=== PATIENT | female | born 1985 | race Caucasian/White ===

== ENCOUNTER 2019-01-22 14:37 | Inpatient (IN) ==
[2019-01-22] MEDS ORDERED: Sod Chloride 0.9% Inj 1,000 ML IV.CONT SCH (18:51)
[2019-01-22] MEDS ORDERED: Morphine Inj 4 MG/ML Vial IV.PUSH PRN (19:42)
[2019-01-22] MEDS ORDERED: Morphine Sulfate Inj 2 MG/ML Vial IV.PUSH PRN (19:43)
--- NOTE | 2019-01-22 23:34 | P.HPIM ---
History of Present Illness Primary Care Physician: UNKNOWN Ms. Sheets is a pleasant 33-year-old female who presented to the emergency room in [place] on 01/22/2019 complaining of abdominal pain. Her examination findings were concerning for acute cholecystitis and she was transferred to [facility] for further evaluation under the hospitalist service. The patient is seen in her hospital room with her mother at her bedside. She appears uncomfortable. She reports severe sharp right upper quadrant pain that is worse after eating and lasts about 40 minutes. She reports symptoms started about 2 months ago but she attributed it to the stress of trying to get her picky 4-year-old to eat his food. She had some nausea associated with it. Yesterday, her symptoms became more severe and accompanied by nausea and vomiting with last episode occurring in the [place] ER. Nausea and vomiting were relieved with IV Zofran. Pain is relieved with IV Dilaudid. She has had fairly constant right upper quadrant abdominal pain since Friday when she started to experience a cough that was dry and nonproductive with 100.5 fever. She reports minimal food intake in the past 24 hours. Inpatient Certification Inpatient Certification: I certify that the inpatient services were ordered in accordance with Medicare regulations governing the order. This includes certification that hospital inpatient services are reasonable and necessary and in the case of services not specified as inpatient-only under 42 CFR 419.22(n), that they are appropriately provided as inpatient services in accordance to with the 2-midnight benchmark under 43 CFR 412.3(e) Estimated Total Length of Stay (Days): 2 Plans for Post Hospital Care: Home Review of Systems Review of Systems: all other systems reviewed are negative [facility] Medical History Medical History Uterine fibroid (Acute) Surgical History Surgical History History of tonsillectomy and adenoidectomy (Acute) Social History Social History Substance History: No History of Abuse Second Hand Smoke Exposure: No Smoking Status: Never smoker How Often Do You Have a Drink Containing Alcohol: Monthly or less Medications and Allergies Allergies Allergy/AdvReac Type Severity Reaction Status Date / Time morphine Allergy Severe breathing Verified 01/23/19 04:35 difficulty oxycodone Allergy Severe difficulty Verified 01/23/19 04:34 breathing Home Medications Medication Instructions Recorded Confirmed Type No Known Home Medications 01/22/19 01/22/19 History Active Medications: Active Medications Sodium Chloride (Ns Inj) 1,000 mls @ 100 mls/hr IV.CONT .Q10H [facility] Morphine Sulfate (Morphine Inj) 4 mg IV.PUSH Q3H PRN PRN Reason: Pain > 6 Morphine Sulfate (Morphine Inj) 2 mg IV.PUSH Q3H PRN PRN Reason: pain 3-6 Ondansetron HCl (Zofran Inj) 4 mg IV.PUSH Q8H PRN PRN Reason: NAUSEA Last Admin: 01/22/19 23:14 Dose: 4 mg Sodium Chloride (Ns Flush) 2 ml IV.FLUSH BID [facility] Sodium Chloride (Ns Flush) 2 ml IV.FLUSH PRN PRN PRN Reason: FLUSH AFTER USING IV ACCESS Physical Exam Narrative: GENERAL: This is a thin female patient, who appears uncomfortable. SKIN: No rashes, ecchymoses or lesions. Cool and dry. HEAD: Atraumatic. Normocephalic. EYES: No scleral icterus. No injection or drainage. ENT: Nose without bleeding, purulent drainage. NECK: Trachea midline. No JVD. CARDIOVASCULAR: Regular rate and rhythm without murmurs, gallops, or rubs. RESPIRATORY: Clear to auscultation. Breath sounds equal bilaterally. No wheezes , rales, or rhonchi. GASTROINTESTINAL: Normally active bowel sounds, abdomen is soft and nondistended. Right upper quadrant and epigastric pain noted with light palpation. MUSCULOSKELETAL: Extremities without clubbing, cyanosis, or edema. No calf tenderness. NEUROLOGICAL: Awake and alert. Motor and sensory grossly within normal limits. Normal speech. . Results Labs CBC & Chem 7: 01/23/19 05:53 01/23/19 05:53 Caprini VTE Risk Assessment Caprini VTE Risk Assessment: No/Low Risk (score <= 1) Caprini Risk Assessment Model: Point Value = 1 Point Value = 2 Point Value = 3 Point Value = 5 Age 41-60 Minor surgery BMI > 25 kg/m2 Swollen legs Varicose veins or History of unexplained or recurrent spontaneous Oral contraceptives or hormone replacement Sepsis (< 1 month) Serious lung disease, including pneumonia (< 1 month) Abnormal pulmonary function Acute myocardial infarction Congestive heart failure (< 1 month) History of inflammatory bowel disease Medical patient at bed rest Age 61-74 Arthroscopic surgery Major open surgery (> 45 min) Laparoscopic surgery (> 45 min) Malignancy Confined to bed (> 72 hours) Immobilizing plaster cast Central venous access Age >= 75 History of VTE Family history of VTE Factor V Leiden Prothrombin [id number] Lupus anticoagulant Anticardiolipin antibodies Elevated serum homocysteine Heparin-induced thrombocytopenia Other congenital or acquired thrombophilia Stroke (< 1 month) Elective arthroplasty Hip, pelvis, or leg fracture Acute spinal cord injury (< 1 month) Prophylaxis Regimen: Total Risk Factor Score Risk Level Prophylaxis Regimen 0-1 Low Early ambulation 2 Moderate Order ONE of the following: *Sequential Compression Device (SCD) *Heparin 5000 units SQ BID 3-4 Higher Order ONE of the following medications: *Heparin 5000 units SQ TID *Enoxaparin/Lovenox 40 mg SQ daily (WT < 150 kg, CrCl > 30 mL/min) *Enoxaparin/Lovenox 30 mg SQ daily (WT < 150 kg, CrCl > 10-29 mL/min) *Enoxaparin/Lovenox 30 mg SQ BID (WT < 150 kg, CrCl > 30 mL/min) AND/OR *Sequential Compression Device (SCD) 5 or more Highest Order ONE of the following medications: *Heparin 5000 units SQ TID (Preferred with Epidurals) *Enoxaparin/Lovenox 40 mg SQ daily (WT < 150 kg, CrCl > 30 mL/min) *Enoxaparin/Lovenox 30 mg SQ daily (WT < 150 kg, CrCl > 10-29 mL/min) *Enoxaparin/Lovenox 30 mg SQ BID (WT < 150 kg, CrCl > 30 mL/min) AND *Sequential Compression Device (SCD) Assessment and Plan Plan Ms. Sheets is a pleasant 33-year-old female who presented to the emergency room in [place] on 01/22/2019 complaining of abdominal pain. Her examination findings were concerning for acute cholecystitis and she was transferred to [facility] for further evaluation under the hospitalist service. Right upper quadrant abdominal pain with concern for cholecystitis -WBC normal at 5.8, normal liver function tests and electrolytes; patient afebrile -Gallbladder ultrasound- sonographically normal although positive sonographic Candelaria's sign was elicited -NPO -HIDA scan in a.m. - if positive, consult to general surgery -Repeat labs in a.m. -Monitor for fever -IVF hydration with D51/2 NS at 84 cc/hr -Antiemetic: IV Zofran PRN -Analgesia: IV Dilaudid PRN - patient allergic to morphine and oxycodone Nonproductive cough Epigastric pain with palpation -Chest x-ray negative -Possible GERD?/PUD -Protonix 40 mg IV every 24 hours -Continue to monitor -Consider consult to gastroenterology if symptoms persist or don't improve Nephrocalcinosis -UA with blood; nephrocalcinosis suggested on gallbladder ultrasound due to echogenic medullary pyramids along with nonobstructing right renal calculus suspected -Abdomen/pelvis CT without contrast showed multiple nonobstructing stones in both kidneys with fluffy calcifications involving the calyces and possibility of medullary nephrocalcinosis -Consider nephrology consult to evaluate for underlying cause Uterine fibroids -f/u with outpatient [employer]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 presented with abdominal pain and nausea. HIDA with cholecystitis. on exam; abdomen is tender RUQ. keep NPO and consult general surgery. will also consult nephrology for nephrocalcinosis.
[2019-01-23] MEDS ORDERED: HYDROmorphone PF Inj 0.5 MG/0.5 ML Syringe IV.PUSH PRN (00:16)
[2019-01-23] MEDS: HYDROmorphone PF Inj 2 MG/ML Vial IV.PUSH PRN ×4 (00:47→19:08)
[2019-01-23] MEDS ORDERED: SODIUM CHLOR 0.9% IV.SIG ONE (01:48)
[2019-01-23] MEDS ORDERED: SINCALIDE IV.SIG ONE (01:48)
[2019-01-23] MEDS: Dextrose 5%/NaCl 0.45% Inj 1,000 ML IV.CONT SCH ×2 (02:29→14:50)
[2019-01-23] MEDS: Sodium Chloride 0.9% 2 ML Flush BID IV.FLUSH SCH ×3 (02:30→20:26)
[2019-01-23] MEDS: Pantoprazole Inj 40 MG Vial IV.PUSH SCH (02:30)
[2019-01-23 07:07] LABS: Baso % (Auto) 0.8 % (0.0-2.0); Eos % (Auto) 0.1 % (0.0-4.0); Hematocrit 37.4 % (35.0-46.0); Hemoglobin 12.7 gm/dL (11.6-15.3); Lymph # (Auto) 0.6 th/mm3 (1.0-4.8); Lymph % (Auto) 14.4 % (9.0-44.0); Mean Corpuscular HGB Conc 33.9 % (32.0-36.0); Mean Corpuscular Hemoglobin 28.9 pg (27.0-34.0); Mean Corpuscular Volume 85.2 fL (80.0-100.0); Mean Platelet Volume 11.4 fL (7.0-11.0); Mono # (Auto) 0.4 th/mm3 (0.0-0.9); Mono % (Auto) 8.7 % (0.0-8.0); Neut # (Auto) 3.2 th/mm3 (1.8-7.7); Platelet Count 142 th/mm3 (150-450); Red Blood Count 4.39 mil/mm3 (4.00-5.30); Red Cell Distribution Width 13.5 % (11.6-17.2); White Blood Count 4.2 th/mm3 (4.0-11.0)
[2019-01-23 07:32] LABS: Albumin 3.3 g/dL (3.4-5.0); Anion Gap 7 meq/L (5-15); Aspartate Aminotransferase 13 U/L (15-37); Blood Urea Nitrogen 9 mg/dL (7-18); Calcium 8.4 mg/dL (8.5-10.1); Carbon Dioxide 26.1 meq/L (21.0-32.0); Chloride 108 meq/L (98-107); Glomerular Filtration Rate Greater Than 89 mL/min (>89); Glucose,Random 99 mg/dL (74-106); Potassium 3.6 meq/L (3.5-5.1); Sodium 141 meq/L (136-145)
[2019-01-23 07:33] LABS: Alanine Aminotransferase 22 U/L (10-53)
[2019-01-23 07:36] LABS: Alkaline Phosphatase 66 U/L (45-117); Total Protein 6.9 g/dL (6.4-8.2)
--- NOTE | 2019-01-23 10:23 | NM ---
EXAM DATE: 01/23/2019 10:14 AM EST AGE/SEX: 33 years / Female INDICATIONS: Abdominal pain with nausea and vomiting. CLINICAL DATA: This is the patient's initial encounter. Patient reports that signs and symptoms have been present for 2 days and indicates a pain score of 7/10. MEDICAL/SURGICAL HISTORY: None. Tonsillectomy. COMPARISON: No prior exams available for comparison. DOSE: 4.1 mCi Tc-99m mebrofenin i.v. Medication: 0.9 mcg Cholecystokinin IV Identical symptomatic response Cholecystokinin was administered by slow infusion over 8 minutes beginning at 60 minutes. TECHNIQUE: Following the intravenous administration of radiotracer, dynamic sequential images were pe rformed with continuous acquisition. Time-activity curves were generated. FINDINGS: There is prompt extraction of radiotracer activity seen in the common duct and small bowel in 15 sudheer ja. There is nonvisualization the gallbladder 2 hours. CONCLUSION: 1. Nonvisualization gallbladder 2 hours, acute versus chronic cholecystitis Electronically signed by: Nasim Huntley MD Board Certified Radiologist 01/23/2019 10:21 AM EST
[2019-01-23] MEDS: Sodium Chloride 0.9% 2 ML Flush PRN IV.FLUSH (10:58)
--- NOTE | 2019-01-23 11:17 | P.PNIM ---
Subjective Interval history: f/u; abdominal pain in no acute distress. but still complaining of RUQ pain and nausea. no fever. d/w the RN at the bedside. Physical Exam Vital signs: Vital Signs 01/22/19 22:45 01/23/19 01:30 01/23/19 03:52 Temperature 97.7 F 97.9 F Pulse Rate 63 68 Respiratory Rate 18 16 17 Blood Pressure 136/62 126/79 Pulse Oximetry 99 98 01/23/19 07:54 Temperature 98.0 F Pulse Rate 62 Respiratory Rate 16 Blood Pressure 123/72 Pulse Oximetry 99 Intake & Output 01/22/19 01/23/19 01/23/19 18:59 06:59 18:59 Weight 44.9 kg Other: # Voids 2 Constitutional no acute distress Routine Respiratory Exam Present CTA bilaterally Routine Cardiovascular Exam Present RRR Routine Abdominal Exam Present soft and tenderness Comments: RUQ tenderness. Routine Extremities Exam Comments: no pedal edema. Routine Neurological Exam Present alert and oriented X3 Results Labs CBC & Chem 7: 01/23/19 05:53 01/23/19 05:53 Imaging Imaging: Impressions Bile Acid Absorption NM 01/23/19 00:00 CONCLUSION: 1. Nonvisualization gallbladder 2 hours, acute versus chronic cholecystitis Assessment and Plan Plan A/P Right upper quadrant abdominal pain with concern for cholecystitis -WBC normal at 5.8, normal liver function tests and electrolytes; patient afebrile -Gallbladder ultrasound- sonographically normal although positive sonographic Candelaria's sign was elicited -NPO -consult general surgery. 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
[2019-01-23] MEDS: Piperacil/Tazo 3.375 GM Premix 3.375 GM/50 ML PIGGYBACK IV.SIG SCH ×2 (15:27→20:27)
--- NOTE | 2019-01-23 18:24 | P.CONNP ---
History of Present Illness Service: Nephrology Consult date: 01/23/19 Requesting Physician: Krystal Watson Reason for Consult: Nephrocalcinosis Primary Care Provider: UNKNOWN Chief Complaint: Abdominal pain History of Present Illness: Patient is a 33-year-old female with history of kidney stones, it happened 4 years ago when she was and passed kidney stone, she had now complained of abdominal pain right lumbar area is going to worse the back, she had nausea and vomiting as well CT of the abdomen and pelvis showed multiple stones and nephrocalcinosis, patient had a nuclear scan and it showed nonvisualization of the gallbladder as well. Urine analysis showed RBCs present Review of Systems Constitutional: Reports anorexia, Reports chills, Reports lack of energy, Reports malaise Eyes: Denies blind spots, Denies blurry vision, Denies bulging eyes, Denies change in vision, Denies double vision, Denies discharge, Denies dry eyes, Denies floaters, Denies irritation, Denies itchy eyes, Denies loss of vision, Denies pain, Denies requires corrective lenses, Denies sensitivity to light, Denies other Ears, Nose, Mouth, and Throat: Denies abnormal hearing, Denies bleeding gums, Denies bad breath, Denies change in voice, Denies dental pain, Denies difficulty swallowing, Denies dizziness, Denies dry mouth, Denies ear discharge , Denies ear pain, Denies facial pain, Denies headache(s), Denies hearing loss, Denies hoarseness, Denies lip swelling, Denies nosebleed, Denies mouth lesions, Denies mouth pain, Denies nasal congestion, Denies nasal discharge, Denies nasal obstruction, Denies nasal trauma, Denies neck lump, Denies neck pain, Denies nose pain, Denies pain with swallowing, Denies poor balance, Denies post nasal drip, Denies ringing in the ears, Denies sinus pain, Denies sinus pressure , Denies sore throat, Denies throat swelling, Denies tongue swelling, Denies other Cardiovascular: Reports excessive sweating Respiratory: Denies change in phlegm color, Denies chest congestion, Denies cough, Denies coughing up blood, Denies excessive phlegm production, Denies pain on inspiration, Denies pain with cough, Denies shortness of breath, Denies shortness of breath with activity, Denies snoring, Denies stridor, Denies wheezing, Denies other Gastrointestinal: Reports abdominal pain, Reports nausea, Reports vomiting Genitourinary: Reports side pain Musculoskeletal: Denies abnormal walking, Denies back pain, Denies body aches, Denies decreased muscle mass, Denies deformity, Denies joint pain, Denies joint swelling, Denies limited joint movement, Denies loss of height, Denies muscle cramps, Denies muscle weakness, Denies neck pain, Denies numbness, Denies radiating pain into limb, Denies stiffness, Denies tingling, Denies other Skin/Breast: Denies acne, Denies bleeding lesions, Denies boil, Denies breast swelling, Denies breast skin changes, Denies breast pain, Denies breast lump, Denies change in breast shape, Denies change in hair, Denies change in skin color, Denies changing lesions, Denies dry skin, Denies excessive hair growth, Denies hair loss, Denies itching, Denies lesions, Denies nail changes, Denies new lesions, Denies nipple discharge, Denies non-healing lesions, Denies redness , Denies sensitivity to light, Denies rash, Denies skin pain, Denies skin ulcer , Denies sores, Denies stretch lantigua, Denies unusual bruising, Denies wounds, Denies yellowing of the skin, Denies other Neurologic: Reports weakness, Denies abnormal hearing, Denies abnormal movements , Denies abnormal speech, Denies abnormal walking, Denies behavioral changes, Denies burning sensations, Denies confusion, Denies dizziness, Denies fainting, Denies frequent falls, Denies headache(s), Denies lack of coordination, Denies localized weakness, Denies loss of vision, Denies memory loss, Denies numbness, Denies other visual disturbances, Denies radiating pain, Denies restless legs, Denies convulsions, Denies seizure-like activity, Denies sensory deficit, Denies tingling, Denies tingling/numbness/burning sensations, Denies tremor(s), Denies unsteadiness, Denies other Psychiatric: Denies abnormal sleep pattern, Denies anxiety, Denies behavioral changes, Denies change in appetite, Denies change in sex drive, Denies confusion , Denies depression, Denies difficulty concentrating, Denies hearing things others do not hear, Denies hopelessness, Denies irritability, Denies lack of enjoyment, Denies memory loss, Denies mood swings, Denies panic attacks, Denies paranoia, Denies seeing things others do not see, Denies sensing things others do not sense, Denies tactile hallucinations, Denies thoughts of hurting/killing others, Denies thoughts of hurting/killing yourself, Denies other Endocrine: Denies cold intolerance, Denies excessive sweating, Denies flushing, Denies heat intolerance, Denies increased hunger, Denies increased thirst, Denies increased urination, Denies rapid, pounding, or irregular heartbeat, Denies other Hematologic/Lymphatic: Denies easy bleeding, Denies easy bruising, Denies enlarged lymph nodes, Denies other Allergic/Immunologic: Denies GI upset with certain foods, Denies hives, Denies itchy eyes, Denies lip swelling, Denies seasonal runny nose, Denies throat swelling, Denies tongue swelling, Denies wheezing, Denies other PMFSH - History History Provided By: Patient - Medical History Medical History: Medical History (Last Updated 01/23/19 @ 18:18 by Giselle Palumbo MD) Kidney stone Uterine fibroid - Surgical History Surgical History: Surgical History (Last Reviewed 01/23/19 @ 18:18 by Giselle Palumbo MD) History of tonsillectomy and adenoidectomy - Family History Family History: Family History (Last Updated 01/23/19 @ 18:19 by Giselle Palumbo MD) Mother Kidney stone Grandparent Kidney stone Other Hypertension - Social History I have reviewed the patient's Social History: Yes - Tobacco History Second Hand Smoke Exposure: No Smoking Status: Never smoker - Alcohol History How Often Do You Have a Drink Containing Alcohol: Monthly or less - Substance Use History Substance History: No History of Abuse Medications and Allergies Active Medications: Active Medications Hydromorphone HCl (Dilaudid Pf Inj) 0.5 mg IV.PUSH Q4H PRN PRN Reason: pain 3-6 Hydromorphone HCl (Dilaudid Pf Inj) 1 mg IV.PUSH Q4H PRN PRN Reason: pain 7-10 Last Admin: 01/23/19 14:08 Dose: 1 mg Dextrose/Sodium Chloride (D5w/1/2 Ns Inj) 1,000 mls @ 84 mls/hr IV.CONT .[id number] [facility] Last Admin: 01/23/19 14:50 Dose: 84 mls/hr Piperacillin/Tazobactam/Dextrose (Zosyn 3.375 Gm Premix) 3.375 gm in 50 mls @ 100 mls/hr IV.SIG Q8H [facility] Last Infusion: 01/23/19 15:57 Dose: Infused Ondansetron HCl (Zofran Inj) 4 mg IV.PUSH Q8H PRN PRN Reason: NAUSEA Last Admin: 01/23/19 10:58 Dose: 4 mg Pantoprazole Sodium (Protonix Inj) 40 mg IV.PUSH Q24H [facility] Last Admin: 01/23/19 02:30 Dose: 40 mg Sodium Chloride (Ns Flush) 2 ml IV.FLUSH BID [facility] Last Admin: 01/23/19 10:58 Dose: 2 ml Sodium Chloride (Ns Flush) 2 ml IV.FLUSH PRN PRN PRN Reason: FLUSH AFTER USING IV ACCESS Last Admin: 01/23/19 10:58 Dose: 2 ml Allergies Allergy/AdvReac Type Severity Reaction Status Date / Time morphine Allergy Severe breathing Verified 01/23/19 04:35 difficulty oxycodone Allergy Severe difficulty Verified 01/23/19 04:34 breathing Home Medications Medication Instructions Recorded Confirmed Type No Known Home Medications 01/22/19 01/23/19 History Exam Vital signs: Vital Signs 01/22/19 22:45 01/23/19 01:30 01/23/19 03:52 Temperature 97.7 F 97.9 F Pulse Rate 63 68 Respiratory Rate 18 16 17 Blood Pressure 136/62 126/79 Pulse Oximetry 99 98 01/23/19 07:54 01/23/19 12:15 01/23/19 16:05 Temperature 98.0 F 97.8 F 97.6 F Pulse Rate 62 58 L 60 Respiratory Rate 16 16 16 Blood Pressure 123/72 148/65 H 136/76 Pulse Oximetry 99 98 99 Intake & Output 01/22/19 01/23/19 01/23/19 18:59 06:59 18:59 Intake Total 1050 / 1050 Balance 1050 / 1050 Weight 44.9 kg Intake: IV 1050 / 1050 D5W/1/2 NS Inj 1,000 ML @ 84 1000 / 1000 mls/hr IV.CONT .[id number] [facility] Rx# :[id number] Zosyn 3.375 GM Premix 3.375 gm 50 / 50 In 50 ml @ 100 mls/hr IV.SIG Q8H [facility] Rx#:[id number] Other: # Voids 2 1 Date of Last Bowel Movement 01/22/19 Narrative: GENERAL: Well-nourished, well-developed patient. SKIN: Warm and dry. HEAD: Normocephalic. EYES: No scleral icterus. No injection or drainage. NECK: Supple, trachea midline. No JVD or lymphadenopathy. CARDIOVASCULAR: Regular rate and rhythm without murmurs, gallops, or rubs. RESPIRATORY: Breath sounds equal bilaterally. No accessory muscle use. GASTROINTESTINAL: Abdomen tenderness EXTREMITIES: No edema NEUROLOGICAL: Awake, alert, and oriented x 3. Non-focal. 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
[2019-01-23] MEDS ORDERED: HYDROmorphone PF Inj 2 MG/ML Vial IV.PUSH ONE (20:40)
[2019-01-24] MEDS: Pantoprazole Inj 40 MG Vial IV.PUSH SCH (01:15)
[2019-01-24] MEDS: Dextrose 5%/NaCl 0.45% Inj 1,000 ML IV.CONT SCH ×2 (01:16→18:46)
[2019-01-24] MEDS: HYDROmorphone PF Inj 2 MG/ML Vial IV.PUSH PRN ×6 (01:49→23:20)
[2019-01-24] MEDS: Piperacil/Tazo 3.375 GM Premix 3.375 GM/50 ML PIGGYBACK IV.SIG SCH ×3 (04:12→21:13)
[2019-01-24] MEDS ORDERED: Chlorhexidine Gluconate 2% 1 Pack (2 Cloths) TOPICAL ONE (05:03)
[2019-01-24] MEDS ORDERED: Sodium Chlor 0.9% Inj 500 ML IV.SIG SCH (06:00)
--- NOTE | 2019-01-24 09:09 | P.PNIM ---
Subjective Interval history: f/u;cholecystitis in no acute distress. but still uncomfortable with RUQ pain and nausea. no fever. d/w the RN. Physical Exam Vital signs: Vital Signs 01/23/19 12:15 01/23/19 16:05 01/23/19 19:40 Temperature 97.8 F 97.6 F 98.2 F Pulse Rate 58 L 60 71 Respiratory Rate 16 16 17 Blood Pressure 148/65 H 136/76 141/81 H Pulse Oximetry 98 99 99 01/23/19 20:24 01/23/19 21:16 01/24/19 01:50 Temperature 97.7 F Pulse Rate 66 Respiratory Rate 18 17 17 Blood Pressure 135/62 Pulse Oximetry 97 01/24/19 02:10 01/24/19 06:38 Temperature Pulse Rate Respiratory Rate 17 16 Blood Pressure Pulse Oximetry Intake & Output 01/23/19 01/24/19 01/24/19 18:59 06:59 18:59 Intake Total 1050 / 1050 1100 / 1100 Output Total 500 / 500 Balance 1050 / 1050 600 / 600 Weight 44.7 kg 44.7 kg Intake: IV 1050 / 1050 1100 / 1100 D5W/1/2 NS Inj 1,000 ML @ 84 1000 / 1000 1000 / 1000 mls/hr IV.CONT .[id number] [facility] Rx# :[id number] Zosyn 3.375 GM Premix 3.375 gm 50 / 50 100 / 100 In 50 ml @ 100 mls/hr IV.SIG Q8H [facility] Rx#:[id number] Output: Urine 500 / 500 Other: # Voids 1 1 Date of Last Bowel Movement 01/22/19 01/22/19 01/22/19 Weight On Admission 44.7 kg Constitutional no acute distress Routine Respiratory Exam Present CTA bilaterally Routine Cardiovascular Exam Present RRR Routine Abdominal Exam Present soft and tenderness Comments: RUQ tenderness. Routine Extremities Exam Comments: no pedal edema. Routine Neurological Exam Present alert and oriented X3 Results Labs CBC & Chem 7: 01/23/19 05:53 01/23/19 05:53 Imaging Imaging: Impressions Bile Acid Absorption NM 01/23/19 00:00 CONCLUSION: 1. Nonvisualization gallbladder 2 hours, acute versus chronic cholecystitis Assessment and Plan (1) Kidney stones: Code(s): N20.0 - Calculus of kidney Status: Acute (2) Nephrocalcinosis: Code(s): E83.59 - Other disorders of calcium metabolism; N29 - Other disorders of kidney and ureter in diseases classified elsewhere Status: Acute (3) Medullary sponge kidney: Code(s): Q61.5 - Medullary cystic kidney Status: Acute Plan Ms. Sheets is a pleasant 33-year-old female who presented to the emergency room in [place] on 01/22/2019 complaining of abdominal pain. Her examination findings were concerning for acute cholecystitis and she was transferred to [facility] for further evaluation under the hospitalist service. cholecystitis keep NPO- surgery consulted and plan for cholecystectomy later today. continue with pain control and antiemetics as needed. Nonproductive cough Epigastric pain with palpation -Chest x-ray negative -Possible GERD?/PUD -Protonix 40 mg IV every 24 hours -Continue to monitor Nephrocalcinosis -UA with blood; nephrocalcinosis suggested on gallbladder ultrasound due to echogenic medullary pyramids along with nonobstructing right renal calculus suspected -Abdomen/pelvis CT without contrast showed multiple nonobstructing stones in both kidneys with fluffy calcifications involving the calyces and possibility of medullary nephrocalcinosis -nephrology consult appreciated. - continue with supportive care. 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
[2019-01-24] MEDS: Sodium Chloride 0.9% 2 ML Flush BID IV.FLUSH SCH ×2 (10:23→20:53)
[2019-01-24] MEDS: Sodium Chloride 0.9% 2 ML Flush PRN IV.FLUSH (11:54)
--- NOTE | 2019-01-24 15:40 | P.PNNP ---
Subjective Interval history: Patient continues to have right upper quadrant abdominal pain, being treated with Dilaudid, with minimal relief. She is n.p.o. Plans for a cholecystectomy today. She is on her menses. Does have some blood in her urine. 24-hour urine in progress. <Yessica Dyson - Last Filed: 01/24/19 15:30> Physical Exam Vital signs: Vital Signs 01/23/19 16:05 01/23/19 19:40 01/23/19 20:24 Temperature 97.6 F 98.2 F Pulse Rate 60 71 Respiratory Rate 16 17 18 Blood Pressure 136/76 141/81 H Pulse Oximetry 99 99 01/23/19 21:16 01/24/19 01:50 01/24/19 02:10 Temperature 97.7 F Pulse Rate 66 Respiratory Rate 17 17 17 Blood Pressure 135/62 Pulse Oximetry 97 01/24/19 06:38 01/24/19 07:52 01/24/19 11:33 Temperature 98 F 98.4 F Pulse Rate 62 61 Respiratory Rate 16 16 16 Blood Pressure 131/76 124/64 Pulse Oximetry 98 98 Intake & Output 01/23/19 01/24/19 01/24/19 18:59 06:59 18:59 Intake Total 1050 / 1050 1100 / 1100 Output Total 500 / 500 Balance 1050 / 1050 600 / 600 Weight 44.7 kg 44.7 kg Intake: IV 1050 / 1050 1100 / 1100 D5W/1/2 NS Inj 1,000 ML @ 84 1000 / 1000 1000 / 1000 mls/hr IV.CONT .[id number] [facility] Rx# :[id number] Zosyn 3.375 GM Premix 3.375 gm 50 / 50 100 / 100 In 50 ml @ 100 mls/hr IV.SIG Q8H [facility] Rx#:[id number] Output: Urine 500 / 500 Other: # Voids 1 1 Date of Last Bowel Movement 01/22/19 01/22/19 01/22/19 Weight On Admission 44.7 kg Narrative: GENERAL: Well-nourished, well-developed patient. SKIN: Warm and dry. HEAD: Normocephalic. EYES: No scleral icterus. No injection or drainage. NECK: Supple, trachea midline. No JVD or lymphadenopathy. CARDIOVASCULAR: Regular rate and rhythm without murmurs, gallops, or rubs. RESPIRATORY: Breath sounds equal bilaterally. No accessory muscle use. GASTROINTESTINAL: Abdomen tenderness to right upper quadrant, hypoactive bowel sounds, nondistended EXTREMITIES: No edema NEUROLOGICAL: Awake, alert, and oriented x 3. Non-focal. <Yessica Dyson - Last Filed: 01/24/19 15:30> Vital signs: Vital Signs 01/23/19 19:40 01/23/19 20:24 01/23/19 21:16 Temperature 98.2 F Pulse Rate 71 Respiratory Rate 17 18 17 Blood Pressure 141/81 H Pulse Oximetry 99 01/24/19 01:50 01/24/19 02:10 01/24/19 06:38 Temperature 97.7 F Pulse Rate 66 Respiratory Rate 17 17 16 Blood Pressure 135/62 Pulse Oximetry 97 01/24/19 07:52 01/24/19 11:33 Temperature 98 F 98.4 F Pulse Rate 62 61 Respiratory Rate 16 16 Blood Pressure 131/76 124/64 Pulse Oximetry 98 98 Intake & Output 01/23/19 01/24/19 01/24/19 18:59 06:59 18:59 Intake Total 1050 / 1050 1100 / 1100 Output Total 500 / 500 Balance 1050 / 1050 600 / 600 Weight 44.7 kg 44.7 kg Intake: IV 1050 / 1050 1100 / 1100 D5W/1/2 NS Inj 1,000 ML @ 84 1000 / 1000 1000 / 1000 mls/hr IV.CONT .[id number] [facility] Rx# :[id number] Zosyn 3.375 GM Premix 3.375 gm 50 / 50 100 / 100 In 50 ml @ 100 mls/hr IV.SIG Q8H [facility] Rx#:[id number] Output: Urine 500 / 500 Other: # Voids 1 1 Date of Last Bowel Movement 01/22/19 01/22/19 01/22/19 Weight On Admission 44.7 kg <Giselle Palumbo - Last Filed: 01/24/19 16:41> Assessment and Plan - Assessment (1) Kidney stones Code(s): N20.0 - Calculus of kidney Status: Acute Plan: Continues to have right upper quadrant pain, nuclear medicine study done, enlargement of gallbladder, inflamed Plans for cholecystectomy today. N.p.o. CT of abdomen 2/22-Multiple nonobstructing stones in both kidneys with fluffy calcifications involving the calyces and possibility of medullary nephrocalcinosis should be entertained. 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 - Other disorders of calcium metabolism; N29 - Other disorders of kidney and ureter in diseases classified elsewhere Status: Acute (3) Medullary sponge kidney Code(s): Q61.5 - Medullary cystic kidney Status: Acute (4) Cholecystitis Code(s): K81.9 - Cholecystitis, unspecified Status: Acute - Attending Attestation Patient seen and discussed with the family [place] Yessica, agree with above assessment and plans, Told family to monitor salt and water intake and drink plenty of fluids to prevent further stones She needs long-term follow-up with primary care physician and nephrology in her area Patient is going to need cholecystectomy From nephrology point of view she can complete 24-hour urine test as outpatient We will cancel it as she is having.'s her menstrual cycle. Nephrology to sign off. <Giselle Palumbo - Last Filed: 01/24/19 16:41>
--- NOTE | 2019-01-24 18:57 | P.PNGS ---
Subjective Patient reports: still having pain, nausea Interval history: DAILY PROGRESS NOTE FOR SURGICAL ATTENDING, DR. LUIS A ROBBINS Patient in severe pain right upper quadrant Anxious to when surgery will be performed Physical Exam Vital signs: Vital Signs 01/23/19 19:40 01/23/19 20:24 01/23/19 21:16 Temperature 98.2 F Pulse Rate 71 Respiratory Rate 17 18 17 Blood Pressure 141/81 H Pulse Oximetry 99 01/24/19 01:50 01/24/19 02:10 01/24/19 06:38 Temperature 97.7 F Pulse Rate 66 Respiratory Rate 17 17 16 Blood Pressure 135/62 Pulse Oximetry 97 01/24/19 07:52 01/24/19 11:33 01/24/19 16:14 Temperature 98 F 98.4 F 98.2 F Pulse Rate 62 61 67 Respiratory Rate 16 16 16 Blood Pressure 131/76 124/64 138/79 Pulse Oximetry 98 98 97 Intake & Output 01/23/19 01/24/19 01/24/19 18:59 06:59 18:59 Intake Total 1050 / 1050 1100 / 1100 1000 / 1000 Output Total 500 / 500 Balance 1050 / 1050 600 / 600 1000 / 1000 Weight 44.7 kg 44.7 kg Intake: IV 1050 / 1050 1100 / 1100 1000 / 1000 D5W/1/2 NS Inj 1,000 ML @ 84 1000 / 1000 1000 / 1000 1000 / 1000 mls/hr IV.CONT .[id number] [facility] Rx# :[id number] Zosyn 3.375 GM Premix 3.375 gm 50 / 50 100 / 100 In 50 ml @ 100 mls/hr IV.SIG Q8H [facility] Rx#:[id number] Output: Urine 500 / 500 Other: # Voids 1 1 1 Date of Last Bowel Movement 01/22/19 01/22/19 01/22/19 Weight On Admission 44.7 kg Narrative: Sitting up in bed alert obviously uncomfortable Good respiratory effort Exquisite tenderness in the right upper quadrant going into the back positive Candelaria sign Extremities moves all extremities well no clubbing cyanosis or edema Results - Labs 01/23/19 05:53 01/23/19 05:53 - Imaging Imaging: ITS Impressions Ultrasound report CONCLUSION: 1. Nonobstructing right renal calculus suspected. 2. Echogenic medullary pyramids suggesting nephrocalcinosis. 3. Gallbladder is normal sonographically although positive sonographic Candelaria' s sign was elicited. ITS Impressions Bile Acid Absorption NM 01/23/19 00:00 CONCLUSION: 1. Nonvisualization gallbladder 2 hours, acute versus chronic cholecystitis HIDA scan: report reviewed, image reviewed US - abdomen: report reviewed, image reviewed Assessment and Plan - Assessment (1) Cholecystitis Code(s): K81.9 - Cholecystitis, unspecified Status: Acute (2) Positive Candelaria's Sign Code(s): R19.8 - Other specified symptoms and signs involving the digestive system and abdomen Status: Acute (3) Right upper quadrant pain Code(s): R10.11 - Right upper quadrant pain Status: Acute (4) Nephrocalcinosis Code(s): E83.59 - Other disorders of calcium metabolism; N29 - Other disorders of kidney and ureter in diseases classified elsewhere Status: Acute (5) Medullary sponge kidney Code(s): Q61.5 - Medullary cystic kidney Status: Acute - Plan 33-year-old female who has clinical features consistent with biliary colic. She has a HIDA scan which shows cystic duct obstruction. Dr. Fu saw the patient yesterday and made arrangements for possible cholecystectomy Friday morning. Family is somewhat frustrated that there was no operating room time for me to proceed with cholecystectomy I am I am available today to proceed with plan laparoscopic cholecystectomy whenever the OR gets time hopefully earlier than later - Attending Attestation NOTE FOR SURGICAL ATTENDING, DR. LUIS A ROBBINS I attest that I had a [id number] encounter with the patient on the same day, and personally performed and documented my assessment and findings in the medical record. The following services were provided during this hospital visit: Chart data review, vital sign assessments/reviewing monitor data Review of consultations notes if present. Medication orders/review and/or management Ordering and/or reviewing lab tests Ordering and/or interpreting/reviewing x-rays and/or diagnostic studies Care of the patient and discussion of the patient with the care team Documentation time To help prompt me to consider important information that might be impacting today's encounter and assessment, Information from prior notes written by myself or my colleagues may have been "brought forward/copy and pasted" into today's note.
[2019-01-24] MEDS ORDERED: Bupivacaine/Epinephrine 0.5% Inj 50 ML Vial ONE (20:08)
[2019-01-24] MEDS ORDERED: Bupivacaine/Epinephrine PF Inj 0.5% 30 ML Vial ONE (20:46)
[2019-01-24] MEDS ORDERED: Neostigmine Inj 5 MG/5 ML Syringe IV.PUSH ONE (20:54)
[2019-01-24] MEDS ORDERED: Glycopyrrolate Inj 1 MG/5 ML Syringe IV.PUSH ONE (20:54)
[2019-01-24] MEDS ORDERED: Lidocaine PF 1% Inj 5 ML Syringe OTHER ONE (20:54)
[2019-01-24] MEDS ORDERED: fentaNYL Citrate Inj 100 MCG/2 ML Ampul ONE (22:01)
--- NOTE | 2019-01-25 | MP ---
cc: Trey Gutierrez MD DATE OF OPERATION: 01/24/2019 DATE OF PROCEDURE: 01/24/2019. PREOPERATIVE DIAGNOSIS: Acute cholecystitis. POSTOPERATIVE DIAGNOSIS: Acute cholecystitis. PROCEDURE PERFORMED: Laparoscopic cholecystectomy. ANESTHESIA: General. SURGEON: Trey Gutierrez MD. OPERATIVE INDICATIONS FOR PROCEDURE: This is a pleasant 33-year-old female who has severe unrelenting right upper quadrant pain and positive Candelaria sign. She had a HIDA scan that showed acute cholecystitis with cystic duct obstruction. Plans were made for above. DESCRIPTION OF PROCEDURE: The patient was placed in the supine position. After anesthesia, her abdomen was prepped with Betadine. She was given preoperative antibiotics. Timeouts done. We made an incision just above the umbilicus after anesthetizing with the Marcaine solution. The Veress needle was inserted and a saline load test performed. The abdomen incision was 15 mmHg. A 10 mm trocar was introduced through the working ports placed in the midline, 1 at just below the xiphoid and 1 in between the 2 previously placed ports in the midline. The gallbladder could be seen. It was difficult to grasp because of its inflamed. She is very thin. We could see the pancreas and the duodenum. Liver smooth, peritoneal surfaces are smooth. Appendix is normal. We then grasped the gallbladder superiorly and laterally, identifying the cystic duct, which is easily dissected free and doubly ligated. We then dissected up trying to identify the cystic artery, but it is very small and nonexistent. The gallbladder was then teased off the gallbladder bed and placed the EndoCatch pulled out through the umbilical incision passed off the field. We then checked our dissection site. Again, there was excellent hemostasis without biliary leakage. We then did irrigate copiously, rechecked our dissection site and it is clean and dry. We then removed the 3 trocars. The umbilical port site was closed with 0 Vicryl, the fascial layer and skin at all 3 sites closed with 4-0 Vicryl. Steri-Strips applied, sterile bandage was applied. The patient tolerated the procedure well. There were no immediate postoperative complications. Trey Gutierrez MD JDB/ts/do , 09:53 PM , 09:59 PM
[2019-01-25] MEDS: Pantoprazole Inj 40 MG Vial IV.PUSH SCH (01:47)
[2019-01-25] MEDS: Dextrose 5%/NaCl 0.45% Inj 1,000 ML IV.CONT SCH (03:15)
[2019-01-25] MEDS: HYDROmorphone PF Inj 2 MG/ML Vial IV.PUSH PRN ×3 (03:30→13:01)
[2019-01-25] MEDS: Piperacil/Tazo 3.375 GM Premix 3.375 GM/50 ML PIGGYBACK IV.SIG SCH ×2 (04:35→12:14)
[2019-01-25] MEDS: Sodium Chloride 0.9% 2 ML Flush BID IV.FLUSH SCH (09:38)
--- NOTE | 2019-01-25 09:52 | P.PNIM ---
Subjective Interval history: in no acute distress. looks and feels much more comfortable today. pain has much improved. no nausea, vomiting. hoping that she could go home today. Physical Exam Vital signs: Vital Signs 01/24/19 11:33 01/24/19 16:14 01/24/19 19:00 Temperature 98.4 F 98.2 F Pulse Rate 61 67 Respiratory Rate 16 16 18 Blood Pressure 124/64 138/79 Pulse Oximetry 98 97 01/24/19 19:16 01/24/19 19:45 01/24/19 21:54 Temperature 97.9 F 98.2 F Pulse Rate 80 88 Respiratory Rate 18 18 15 Blood Pressure 149/77 H 139/84 Pulse Oximetry 99 01/24/19 22:00 01/24/19 22:15 01/24/19 22:30 Temperature 98.0 F Pulse Rate 82 69 68 Respiratory Rate 16 16 16 Blood Pressure 133/73 146/83 H 145/87 H Pulse Oximetry 96 97 97 01/24/19 23:08 01/24/19 23:54 01/25/19 00:00 Temperature 98.1 F 97.4 F L Pulse Rate 65 76 Respiratory Rate 16 19 18 Blood Pressure 157/98 H 138/70 Pulse Oximetry 99 99 01/25/19 02:59 01/25/19 03:30 01/25/19 04:00 Temperature 97.4 F L Pulse Rate 75 Respiratory Rate 17 18 18 Blood Pressure 132/82 Pulse Oximetry 97 01/25/19 08:00 Temperature 98.1 F Pulse Rate 65 Respiratory Rate 16 Blood Pressure 146/76 H Pulse Oximetry 98 Intake & Output 01/24/19 01/25/19 01/25/19 18:59 06:59 18:59 Intake Total 1050 / 1050 2530 / 2530 Output Total 602 / 602 Balance 1050 / 1050 1928 / 1928 Weight 44.7 kg 47.2 kg Intake: IV 1050 / 1050 1300 / 1300 D5W/1/2 NS Inj 1,000 ML @ 84 1000 / 1000 1000 / 1000 mls/hr IV.CONT .[id number] [facility] Rx# :[id number] Ofirmev Inj 1,000 mg In 100 ml 200 / 200 @ 400 mls/hr IV.SIG Q6H [facility] Rx# :[id number] Zosyn 3.375 GM Premix 3.375 gm 50 / 50 100 / 100 In 50 ml @ 100 mls/hr IV.SIG Q8H [facility] Rx#:[id number] Oral 480 / 480 Anesthesia Amount 750 / 750 Output: Urine 600 / 600 Estimated Blood Loss 2 / 2 Other: # Voids 1 Date of Last Bowel Movement 01/22/19 01/22/19 01/23/19 Weight On Admission 44.7 kg Constitutional no acute distress Routine Respiratory Exam Present CTA bilaterally Routine Cardiovascular Exam Present RRR Routine Abdominal Exam Present soft Routine Extremities Exam Comments: no pedal edema. Routine Neurological Exam Present alert and oriented X3 Results Labs CBC & Chem 7: 01/23/19 05:53 01/23/19 05:53 Procedures Procedures: laparoscopic cholecystectomy. Assessment and Plan (1) Cholecystitis: Code(s): K81.9 - Cholecystitis, unspecified Status: Acute (2) Positive Candelaria's Sign: Code(s): R19.8 - Other specified symptoms and signs involving the digestive system and abdomen Status: Acute (3) Right upper quadrant pain: Code(s): R10.11 - Right upper quadrant pain Status: Acute (4) Nephrocalcinosis: Code(s): E83.59 - Other disorders of calcium metabolism; N29 - Other disorders of kidney and ureter in diseases classified elsewhere Status: Acute (5) Medullary sponge kidney: Code(s): Q61.5 - Medullary cystic kidney Status: Acute Plan Ms. Sheets is a pleasant 33-year-old female who presented to the emergency room in [place] on 01/22/2019 complaining of abdominal pain. Her examination findings were concerning for acute cholecystitis and she was transferred to [facility] for further evaluation under the hospitalist service. cholecystitis s/p laparoscopic cholecystectomy- looks much more comfortable today. awaiting surgery f/u and recommendations. Nephrocalcinosis -nephrology consult appreciated- f/u as outpatient. Uterine fibroids -f/u with outpatient ALLERGIST/MD DVT prophylaxis -Early ambulation/VTE Discharge Planning: dc home- when cleared by general surgery. f/u; pcp, general surgery and nephrology. see med list. d/w the patient and RN. Luis was consulted before discharge.
--- NOTE | 2019-01-25 09:55 | P.DS ---
DS: Providers Date of admission: 01/22/19 22:42 Primary care physician: UNKNOWN Consults: 01/23/19 11:15 Consult to General Surgery Routine Consulting Provider: Chan Fu Reason for Consultation: cholecytitis Notified:: Service Spoke with:: ENA Date Notified:: 01/23/19 Time Notified:: 11:19 Ordering Provider: AMINATA 01/23/19 11:20 Consult to Nephrology Routine Consulting Provider: Giselle Palumbo Does the patient have a Dialysis Social Worker who follows them?: No Preferred Nephrology Foreign Policy Officer:: Supply Aide Physician Reason for Consultation: nephrocalcinosis Notified:: Service Spoke with:: ASHLEY Date Notified:: 01/23/19 Time Notified:: 11:23 Ordering Provider: AMINATA DS: Diagnosis Discharge Diagnosis (1) Cholecystitis: Status: Acute (2) Positive Candelaria's Sign: Status: Acute (3) Right upper quadrant pain: Status: Acute (4) Nephrocalcinosis: Status: Acute (5) Medullary sponge kidney: Status: Acute DS: Summary patient was admitted with cholecystitis. general surgery was consulted and she underwent laparoscopic cholecystectomy. post-op course was uneventful. she was also found to have nephrocalcinosis for which nephrology was consulted and she needs a follow-up with nephrology and her pcp as outpatient. Time Spent with Patient Total time spent providing and/or coordinating discharge services: Less than 30 minutes Exam Narrative Exam Narrative: patient in no acute distress. S1/S2 heard/ bilateral air entry present/ abdomen is soft/ no pedal edema/ patient is awake and oriented. Results Procedures completed during hospitalization: laparoscopic cholecystectomy. Pending studies at discharge: Pending at discharge 01/24/19 08:15 Surgical [PTH] Routine Impressions ITS Impressions Bile Acid Absorption NM 01/23/19 00:00 CONCLUSION: 1. Nonvisualization gallbladder 2 hours, acute versus chronic cholecystitis Discharge Plan Discharge Disposition Patient Disposition: 01 Discharge Home Discharge Condition Condition: Good Discharge Order Discharge Orders: Discharge Order (Routine); Ordered 01/25/19 Ordered By: Krystal Watson Discharge Details Anticipated Discharge Date: 01/25/19 Discharge Comment: when cleared by general surgery. Physicians Team ED Provider: [facility] Primary Care Provider: MEÑO, Attending Provider: Krystal Watson Other Providers: Chan Fu ; Giselle Palumbo Rxs /Orders / Referrals /Forms Prescriptions: New hydrocodone-acetaminophen [[facility]] 5-325 mg tablet 1 tab PO Q6H PRN (Reason: Acute pain) Qty: 10 RF: 0 No Action No Known Home Medications RF: 0 Referrals: Chan Fu MD [Physician] - See Instructions Giselle Palumbo MD [Physician] - See Instructions UNKNOWN, [Primary Care Provider] - See Instructions Stand Alone Forms: Work Release/Restrictions Discharge Instructions Patient Printed Instructions: Cholecystitis (DC), Low Fat Diet (DC), Laparoscopic Cholecystectomy (DC), Narcotic Safety (DC) Additional Instructions: Take medications as directed. Keep or make your follow up appointments as instructed by your providers. Leave steri-strips in place until they fall off on their own. Post Discharge Care Plan Care Plan Goals: Your Health Problems: Goals to Promote Your Health: * To prevent worsening of your condition * To maintain your health at the optimal level Directions to Meet Your Goals: * Take your medications as prescribed * Follow your dietary instruction * Follow activity as directed * Keep your appointments as scheduled * Take your immunizations and boosters as scheduled * If your symptoms worsen call your PCP * If no PCP go to Urgent Care or Emergency Room Smoking is dangerous to your health. Avoid second hand smoke. You may reach the 24-hour crisis hotline for domestic abuse at . Status ED Status: Admitted Patient Discharge Information Discharge Date/Time: 01/25/19 18:30
[2019-01-25 12:07] VITALS: O2SAT 99
--- NOTE | 2019-01-25 16:17 | P.PNGS ---
Subjective Interval history: Ambulating in the room No issues Tolerated lunch Physical Exam Vital signs: Vital Signs 01/24/19 19:00 01/24/19 19:16 01/24/19 19:45 Temperature 97.9 F Pulse Rate 80 Respiratory Rate 18 18 18 Blood Pressure 149/77 H Pulse Oximetry 99 01/24/19 21:54 01/24/19 22:00 01/24/19 22:15 Temperature 98.2 F 98.0 F Pulse Rate 88 82 69 Respiratory Rate 15 16 16 Blood Pressure 139/84 133/73 146/83 H Pulse Oximetry 96 97 01/24/19 22:30 01/24/19 23:08 01/24/19 23:54 Temperature 98.1 F Pulse Rate 68 65 Respiratory Rate 16 16 19 Blood Pressure 145/87 H 157/98 H Pulse Oximetry 97 99 01/25/19 00:00 01/25/19 02:59 01/25/19 03:30 Temperature 97.4 F L Pulse Rate 76 Respiratory Rate 18 17 18 Blood Pressure 138/70 Pulse Oximetry 99 01/25/19 04:00 01/25/19 08:00 01/25/19 10:55 Temperature 97.4 F L 98.1 F Pulse Rate 75 65 Respiratory Rate 18 16 16 Blood Pressure 132/82 146/76 H Pulse Oximetry 97 98 01/25/19 12:00 Temperature 97.1 F L Pulse Rate 65 Respiratory Rate 18 Blood Pressure 151/88 H Pulse Oximetry 99 Intake & Output 01/24/19 01/25/19 01/25/19 18:59 06:59 18:59 Intake Total 1050 / 1050 2530 / 2530 100 / 100 Output Total 602 / 602 Balance 1050 / 1050 1928 / 1928 100 / 100 Weight 44.7 kg 47.2 kg Intake: IV 1050 / 1050 1300 / 1300 100 / 100 D5W/1/2 NS Inj 1,000 ML @ 84 1000 / 1000 1000 / 1000 mls/hr IV.CONT .[id number] [facility] Rx# :[id number] Ofirmev Inj 1,000 mg In 100 ml 200 / 200 100 / 100 @ 400 mls/hr IV.SIG Q6H [facility] Rx# :[id number] Zosyn 3.375 GM Premix 3.375 gm 50 / 50 100 / 100 In 50 ml @ 100 mls/hr IV.SIG Q8H [facility] Rx#:[id number] Oral 480 / 480 Anesthesia Amount 750 / 750 Output: Urine 600 / 600 Estimated Blood Loss 2 / 2 Other: # Voids 1 Date of Last Bowel Movement 01/22/19 01/22/19 01/23/19 Weight On Admission 44.7 kg Narrative: Alert and awake Abd: soft; minimally tender; lap sites c/d/i Results - Labs 01/23/19 05:53 01/23/19 05:53 - Imaging Imaging: ITS Impressions Bile Acid Absorption NM 01/23/19 00:00 CONCLUSION: 1. Nonvisualization gallbladder 2 hours, acute versus chronic cholecystitis Assessment and Plan - Assessment (1) Cholecystitis Code(s): K81.9 - Cholecystitis, unspecified Status: Acute Plan: 33 year old female POD1 lap bruno -Tolerating regular diet -Pain controlled -Okay to shower starting this PM -GS clear for DC -Follow up in 1 week (2) Positive Candelaria's Sign Code(s): R19.8 - Other specified symptoms and signs involving the digestive system and abdomen Status: Acute (3) Right upper quadrant pain Code(s): R10.11 - Right upper quadrant pain Status: Acute (4) Nephrocalcinosis Code(s): E83.59 - Other disorders of calcium metabolism; N29 - Other disorders of kidney and ureter in diseases classified elsewhere Status: Acute (5) Medullary sponge kidney Code(s): Q61.5 - Medullary cystic kidney Status: Acute
[2019-01-25 16:23] VITALS: BP 140/83; PULSE 64; RESP 17; TEMP 97.6
== END 2019-01-25 18:30 | disposition home or self-care (01) | DRG 418 ==
LOC: NEDDLT 14:37 → N06 22:42
PROVIDERS: ADMIT Internal Medicine; ATTEND Internal Medicine
DX: Z88.5 Allergy status to narcotic agent; Z82.49 Family history of ischemic heart disease and other diseases of the circulatory system; R05 Cough; K82.0 Obstruction of gallbladder; K81.0 Acute cholecystitis; Z84.1 Family history of disorders of kidney and ureter; D25.9 Leiomyoma of uterus, unspecified; Z87.442 Personal history of urinary calculi; Q61.5 Medullary cystic kidney; N20.0 Calculus of kidney; N29 Other disorders of kidney and ureter in diseases classified elsewhere
CPT/HCPCS: 71020; 71046; 74176; 76705; 78226; 80053; 81001; 83690; 83735; 84703; 85025; 88304; 90761; 90774; 90775; 90776; 90784; 94150; 96361; 96374; 96375; 96376; 99291; A9513; A9537; C1097; C8952; C9113; J0131; J0780; J1100; J1170; J2405; J2543; J2704; J2710; J2765; J2805; J3010; J7030